=== PATIENT | female | born 1965 | race African-American/Black ===

== ENCOUNTER 2018-01-14 18:04 | Emergency (ER) | payer OTHER ==
[~2018-01-14] VITALS: Ht 175.3 cm; Wt 102.0 kg
[2018-01-14] MEDS ORDERED: KETOROLAC 60MG/2ML VIAL IM ONE (21:45)
[2018-01-14 22:12] VITALS: BP 142/78
== END 2018-01-14 22:47 | disposition home or self-care (01) ==
LOC: ER 18:04
DX: M54.40 Lumbago with sciatica, unspecified side (principal); R03.0 Elevated blood-pressure reading, without diagnosis of hypertension; Z98.84 Bariatric surgery status
CPT/HCPCS: 96372; 99283; J1885; Z7610

== ENCOUNTER 2019-06-10 19:50 | Emergency (ER) | payer OTHER ==
[~2019-06-10] VITALS: Ht 175.3 cm; Wt 98.0 kg
[2019-06-10] MEDS ORDERED: KETOROLAC 60MG/2ML VIAL IM STA (22:35)
[2019-06-11 00:23] VITALS: BP 147/71
== END 2019-06-11 00:24 | disposition home or self-care (01) ==
LOC: ER 19:50
DX: S80.02XA Contusion of left knee, initial encounter (principal); M25.532 Pain in left wrist; J44.9 Chronic obstructive pulmonary disease, unspecified; F12.10 Cannabis abuse, uncomplicated; Z98.890 Other specified postprocedural states; W01.0XXA Fall on same level from slipping, tripping and stumbling without subsequent striking against object, initial encounter; Y93.89 Activity, other specified; Y92.89 Other specified places as the place of occurrence of the external cause; Y99.8 Other external cause status
CPT/HCPCS: 73110; 73562; 96372; 99284; J1885

== ENCOUNTER 2022-08-08 07:39 | Emergency (ER) | payer BC, MEDICAID ==
[~2022-08-08] VITALS: Ht 175.3 cm; Wt 108.0 kg
[2022-08-08 08:02] VITALS: BP 145/79
[2022-08-08 08:42] LABS: BASOPHILS % 0.8 % (0.0-2.0); EOSINOPHILS % 1.4 % (0.0-5.0); HEMATOCRIT. 40.7 % (36.0-48.0); HEMOGLOBIN. 13.5 g/dL (12.0-16.0); LYMPHOCYTES % 24.9 % (20.0-50.0); MEAN CORPUSCULAR HEMOGLOBIN 27.9 pg (28.0-32.0); MEAN CORPUSCULAR VOLUME 84.1 fL (81.0-99.0); MEAN PLATELET VOLUME 8.7 fl (7.4-10.4); MONOCYTES % 6.6 % (2.0-8.0); NEUTROPHILS % 66.3 % (40.0-76.0); PLATELET 283 x1000/uL (130-400); RED BLOOD CELL COUNT 4.84 mill/uL (4.2-5.4); RED CELL DISTRIBUTION WIDTH 14.3 % (11.6-14.6)
[2022-08-08 08:48] LABS: CLARITY URINE CLEAR (CLEAR); COLOR URINE YELLOW (YELLOW); KETONES URINE NEGATIVE (NEGATIVE); LEUKOCYTE ESTERASE URINE TRACE (NEGATIVE); NITRITE URINE NEGATIVE (NEGATIVE); OCCULT BLOOD URINE 3+ (NEGATIVE); PROTEIN URINE NEGATIVE (NEGATIVE); SPECIFIC GRAVITY URINE 1.008 (1.005-1.030); UROBILINOGEN URINE 0.2 E.U./dL (0.2-1.0)
[2022-08-08 08:48] LABS: CHLORIDE 110 mEq/L (98-107)
[2022-08-08 08:57] LABS: B-HCG QUANTITATIVE < 1.0 mIU/mL (<3)
[2022-08-08] MEDS ORDERED: ACET-2708 MT (11:15)
== END 2022-08-08 12:09 | disposition home or self-care (01) ==
LOC: ER 07:39
DX: N93.8 Other specified abnormal uterine and vaginal bleeding (principal); D25.9 Leiomyoma of uterus, unspecified; J45.909 Unspecified asthma, uncomplicated; F12.10 Cannabis abuse, uncomplicated
CPT/HCPCS: 36415; 76830; 76856; 80053; 81003; 81025; 84702; 85025; 86850; 86900; 99284